=== PATIENT | female | born 2000 | race Caucasian/White ===

== ENCOUNTER 2023-06-10 05:31 | Emergency (ER) | payer OTHER ==
[~2023-06-10] VITALS: Ht 167.6 cm; Wt 65.8 kg
[2023-06-10] MEDS ORDERED: ACETAMINOPHEN500 M2 PO (07:33)
== END 2023-06-10 07:38 ==
LOC: ER 05:32
DX: T59.891A Toxic effect of other specified gases, fumes and vapors, accidental (unintentional), initial encounter (principal); R51.9 Headache, unspecified; Y92.813 Airplane as the place of occurrence of the external cause